=== PATIENT | male | born 1985 | race Caucasian/White ===

== ENCOUNTER → 2017-08-21 12:36 | Outpatient (CLI) | payer BC, SELFPAY ==
--- NOTE | 2017-08-21 12:44 | RAD_ITS ---
STUDY: X-RAY - LUMBAR SPINE REASON FOR EXAM: Male, 32 years old. Low back pain. TECHNIQUE: 5 view(s) of the lumbar spine were obtained including oblique views. COMPARISON: None FINDINGS: There is straightening of the normal lumbar lordosis. There is no substantial scoliosis. Minimal retrolisthesis of L2 on L3. Anterior spondylosis at the L2-L3 level. Normal disc space heights. The soft tissue structures are unremarkable. RAD/L/S Spine Min 4 Views IMPRESSION: Degenerative changes of the spine, as detailed above. Electronically Signed: Isidro aTte MD at 15:47 EDT Tel [phone], Service support ,
== END ==
PROVIDERS: Visit Provider Physician Assistant Surgical
DX: S39.012A Strain of muscle, fascia and tendon of lower back, initial encounter (principal)
CPT/HCPCS: 72110